=== PATIENT | male | born 1945 | race Caucasian/White ===

== ENCOUNTER 2020-09-11 14:49 | Inpatient (IN) | payer MEDICARE, OTHER ==
[~2020-09-11] VITALS: Ht 188 cm; Wt 86.8 kg
[2020-09-11 15:54] LABS: BASOPHILS # (AUTO) 0.1 X10'3 (0-0.2); BASOPHILS % (AUTO) 1.1 % (0-1); EOSINOPHILS # (AUTO) 0.1 X10'3 (0-0.9); EOSINOPHILS % (AUTO) 1.6 % (0-6); HEMOGLOBIN 16.6 g/dl (14.0-17.9); LYMPHOCYTES # (AUTO) 0.8 X10'3 (1.1-4.8); MEAN CORPUSCULAR HEMOGLOBIN 33.3 PG (27.0-31.0); MEAN CORPUSCULAR HGB CONC 34.6 g/dL (33.0-36.5); MEAN CORPUSCULAR VOLUME 96.4 FL (78-98); MEAN PLATELET VOLUME 8.4 FL (7.4-10.4); MONOCYTES # (AUTO) 0.5 X10'3 (0-0.9); MONOCYTES % (AUTO) 7.9 % (2-12); NEUTROPHILS # (AUTO) 4.9 X10'3 (1.8-7.7); NEUTROPHILS % (AUTO) 76.4 % (42-75); PLATELET COUNT 168 X10'3 (140-440); RED BLOOD COUNT 4.98 X10'6 (4.70-6.10); RED CELL DISTRIBUTION WIDTH 13.9 % (11.5-14.5); WHITE BLOOD COUNT 6.4 X10'3 (4.5-11.0)
[2020-09-11 16:02] LABS: ALANINE AMINOTRANSFERASE 20 U/L (12-78); ALBUMIN 3.2 G/DL (3.4-5.0); ALBUMIN/GLOBULIN RATIO 0.9 (1.1-1.5); ALKALINE PHOSPHATASE 79 IU/L (46-116); ANION GAP 9 (8-16); ASPARTATE AMINO TRANSFERASE 42 U/L (10-37); BILIRUBIN,TOTAL 0.7 MG/DL (0.1-1.0); BLOOD UREA NITROGEN 9 MG/DL (7-18); BUN/CREATININE RATIO 9.5 (5.4-32.0); CALCIUM 8.4 MG/DL (8.5-10.1); CHLORIDE 95 MMOL/L (99-107); CREATININE 0.95 MG/DL (0.60-1.10); GLUCOSE 152 MG/DL (70-104); POTASSIUM 3.7 MMOL/L (3.5-5.1); SODIUM 129 MMOL/L (135-145); TOTAL CARBON DIOXIDE 24.6 MMOL/L (24-32); TOTAL PROTEIN 6.7 G/DL (6.4-8.2); eGFR 77 ML/MIN
[2020-09-11 16:10] LABS: MAGNESIUM 1.8 MG/DL (1.5-2.4)
[2020-09-11] MEDS ORDERED: iohexol 350 MG/ML 50ML vial IV ONE (17:35)
[2020-09-11] MEDS ORDERED: iohexol 350MG/ML 100ml bottle IV ONE (17:36)
[2020-09-11] MEDS ORDERED: heparin 10,000 units/1 ML INJ IV ONE ×2 (17:45→18:00)
[2020-09-11] MEDS ORDERED: heparin 10,000 units/1 ML INJ IV PRN (17:45)
[2020-09-11] MEDS ORDERED: CARV3.12 PO (18:08)
[2020-09-11] MEDS ORDERED: ATOR40TA14 PO (18:08)
[2020-09-11] MEDS ORDERED: APIX5TAB3 PO (18:08)
[2020-09-11] MEDS ORDERED: SACU1TAB7 PO (18:08)
[2020-09-11] MEDS: heparin 25,000 UNIT/250ml bag 250 ML IV SCH (18:11)
[2020-09-11] MEDS ORDERED: magnesium Cl slow-release 64mg tablet PO PRN (19:30)
[2020-09-11] MEDS ORDERED: ondansetron/PF 4mg/2ml inj IV PRN (19:30)
[2020-09-11] MEDS ORDERED: potassium Cl 20 mEq SR tablet PO PRN (19:30)
[2020-09-11] MEDS ORDERED: acetaminophen 650mg rectal suppository RC PRN (19:30)
[2020-09-11] MEDS ORDERED: diphenhydrAMINE 25mg capsule PO PRN (19:30)
[2020-09-11] MEDS ORDERED: HYDROcodone/acetaminophen 10/325mg tab PO PRN (19:30)
[2020-09-11] MEDS ORDERED: magnesium 2GM in 50ml NS 50 ML IV PRN (19:30)
[2020-09-11] MEDS ORDERED: magnesium 4gm in 100ml NS 100 ML IV PRN (19:30)
[2020-09-11] MEDS ORDERED: acetaminophen 325mg tablet PO PRN ×2 (19:30)
[2020-09-11] MEDS ORDERED: magnesium hydroxide 30ml (MOM) UD suspension PO PRN (19:30)
[2020-09-11] MEDS ORDERED: morphine 2 MG/ML inj. syringe IV PRN ×2 (19:30)
[2020-09-11] MEDS ORDERED: HYDROcodone/acetaminophen 5mg/325mg tablet PO PRN (19:30)
[2020-09-11] MEDS ORDERED: bisacodyl 10mg suppository rectal RC PRN (19:30)
[2020-09-11] MEDS ORDERED: mag hydrox/Alum hydrox/simeth 30ml oral suspension PO PRN (19:30)
[2020-09-11] MEDS ORDERED: potassium Cl 40MEQ/1/2NS 520ml 520 ML IV PRN ×2 (19:30)
[2020-09-11 20:16] LABS: HEMOGLOBIN A1C 5.4 % (4.5-6.2)
[2020-09-11] MEDS: normal saline 1000ml 1,000 ML IV SCH (20:22)
[2020-09-11] MEDS: K and/or MAG REPLACEMENT MC SCH (20:22)
[2020-09-11] MEDS: sacubitril/valsartan 49mg-51mg tablet PO SCH (20:45)
[2020-09-11] MEDS: carVEDilol 3.125mg tablet PO SCH (20:45)
[2020-09-11] MEDS ORDERED: nitroGLYCERIN 0.4mg SUBLingual tab SL PRN (21:20)
[2020-09-11] MEDS ORDERED: aminophylline 250mg/10ml inj. IV PRN (21:20)
[2020-09-11] MEDS ORDERED: metoprolol tartrate 1mg/ml inj IV PRN (21:20)
[2020-09-11] MEDS ORDERED: regadenoson 0.4mg/5ml syringe IV ONE (21:20)
[2020-09-11] MEDS ORDERED: regadenoson 0.4mg/5ml syringe IV PRN (21:30)
--- NOTE | 2020-09-11 23:05 | NUR ---
pt on hospital bed
[2020-09-12] VITALS (11 sets, daily range): BP systolic 78–143; BP diastolic 43–79
[2020-09-12] MEDS: heparin 25,000 UNIT/250ml bag 250 ML IV SCH (01:40)
--- NOTE | 2020-09-12 06:50 | NUR ---
coag labs drawn
--- NOTE | 2020-09-12 07:45 | NUR ---
Went to bedside to assess pt's IV pumps. Found Heparin gtt to be running at 19 units/hr and not the documented 1900 units/hr. Spoke to sql bi developer, as well as pharmacist. Pump to be set back at original 1500 units/hour titration order, and PTT to be redrawn in 6 hours. Hospitalist paged.
[2020-09-12] MEDS: K and/or MAG REPLACEMENT MC SCH ×2 (08:00→20:00)
[2020-09-12] MEDS ORDERED: atorvastatin 20mg tablet PO SCH (08:00)
--- NOTE | 2020-09-12 08:15 | NUR ---
Spoke to Pharmacist, states she also reccomends giving bolus dose as PTT is low.
--- NOTE | 2020-09-12 08:17 | NUR ---
Spoke to Dr. Montes regarding Heparin. MD aware of pharmacist reccomendations and agrees with current plan.
--- NOTE | 2020-09-12 08:45 | NUR ---
pt in [facility]
[2020-09-12 10:51] LABS: BASOPHILS # (AUTO) 0.1 X10'3 (0-0.2); BASOPHILS % (AUTO) 0.8 % (0-1); EOSINOPHILS # (AUTO) 0.1 X10'3 (0-0.9); EOSINOPHILS % (AUTO) 1.7 % (0-6); HEMATOCRIT 55.4 % (42.0-52.0); LYMPHOCYTES # (AUTO) 0.7 X10'3 (1.1-4.8); LYMPHOCYTES % (AUTO) 10.3 % (21-51); MEAN CORPUSCULAR HEMOGLOBIN 32.8 PG (27.0-31.0); MEAN CORPUSCULAR VOLUME 96.2 FL (78-98); MEAN PLATELET VOLUME 8.5 FL (7.4-10.4); MONOCYTES # (AUTO) 0.4 X10'3 (0-0.9); MONOCYTES % (AUTO) 6.2 % (2-12); NEUTROPHILS # (AUTO) 5.6 X10'3 (1.8-7.7); PLATELET COUNT 177 X10'3 (140-440); RED BLOOD COUNT 5.75 X10'6 (4.70-6.10); WHITE BLOOD COUNT 6.9 X10'3 (4.5-11.0)
[2020-09-12] MEDS: carVEDilol 3.125mg tablet PO SCH ×2 (10:59→21:55)
[2020-09-12 11:03] LABS: HEMOGLOBIN 18.9 g/dl (14.0-17.9)
[2020-09-12 11:04] LABS: ALANINE AMINOTRANSFERASE 24 U/L (12-78); ALBUMIN 3.6 G/DL (3.4-5.0); ALBUMIN/GLOBULIN RATIO 0.9 (1.1-1.5); ALKALINE PHOSPHATASE 90 IU/L (46-116); ANION GAP 7 (8-16); ASPARTATE AMINO TRANSFERASE 45 U/L (10-37); BILIRUBIN,TOTAL 1.2 MG/DL (0.1-1.0); BLOOD UREA NITROGEN 6 MG/DL (7-18); BUN/CREATININE RATIO 6.8 (5.4-32.0); CALCIUM 8.6 MG/DL (8.5-10.1); CHLORIDE 99 MMOL/L (99-107); CHOL/HDL RATIO 3.4 (0.00-4.99); CHOLESTEROL 178 MG/DL (0-200); CREATININE 0.88 MG/DL (0.60-1.10); GLUCOSE 102 MG/DL (70-104); HDL CHOLESTEROL 53 MG/DL (35-60); LDL CHOLESTEROL 115 MG/DL (50-100); MAGNESIUM 1.9 MG/DL (1.5-2.4); PHOSPHORUS 3.1 MG/DL (2.3-4.5); SODIUM 136 MMOL/L (135-145); TOTAL CARBON DIOXIDE 29.7 MMOL/L (24-32); TOTAL PROTEIN 7.5 G/DL (6.4-8.2); TRIGLYCERIDES 51 MG/DL (20-135); eGFR 85 ML/MIN
[2020-09-12] MEDS: sacubitril/valsartan 49mg-51mg tablet PO SCH (11:07)
[2020-09-12] MEDS: normal saline 1000ml 1,000 ML IV SCH (11:08)
[2020-09-12] MEDS ORDERED: SACU1TAB4 PO (13:02)
--- NOTE | 2020-09-12 14:53 | NUR ---
notified. PAGER ID: [phone] MESSAGE: RE; Alexi Stearns. [id number]. Critical Ptt at 116. Stopping heparin gtt for 2 hours, per protocol. Thanks. Jinny. [id number].
--- NOTE | 2020-09-12 18:44 | NUR ---
Problems reprioritized. Patient report given, questions answered & plan of care reviewed with MARYURI Cameron.
--- NOTE | 2020-09-12 18:45 | NUR ---
Patient in room PCU 3027. I have received report from Jinny WAHL and had the opportunity to ask questions and assume patient care.
[2020-09-12] MEDS: SACUBITRIL PO SCH (20:00)
[2020-09-12] MEDS: [UNRECOGNIZED DRUG - OTHER] PO SCH (20:00)
[2020-09-12] MEDS: VALSARTAN PO SCH (20:00)
[2020-09-12] MEDS: atorvastatin 20mg tablet PO SCH (21:55)
[2020-09-13] VITALS (10 sets, daily range): BP systolic 94–179; BP diastolic 54–87
[2020-09-13 01:08] LABS: CLARITY,URINE CLEAR (Clear); COLOR,URINE YELLOW (Yellow); GLUCOSE, URINE NEGATIVE (Neg); KETONES,URINE 15 mg/dl (Neg); LEUKOCYTE ESTERASE ,URINE NEGATIVE (Neg); NITRITES, URINE NEGATIVE (Neg); OCCULT BLOOD,URINE TRACE-INTACT (Neg); PROTEIN,URINE NEGATIVE (Neg)
[2020-09-13 01:21] LABS: UA COLLECTION TYPE VOIDED
[2020-09-13 01:26] LABS: BACTERIA,URINE NONE SEEN /HPF (Neg); MUCUS STRANDS NONE SEEN /LPF (Neg); SQUAMOUS EPITHELIAL CELL,UR FEW /LPF (FEW); WBC,URINE 0-4 /HPF (0-4)
[2020-09-13 02:11] LABS: BASOPHILS % (AUTO) 0.8 % (0-1); EOSINOPHILS # (AUTO) 0.1 X10'3 (0-0.9); EOSINOPHILS % (AUTO) 2.1 % (0-6); HEMATOCRIT 50.6 % (42.0-52.0); HEMOGLOBIN 17.5 g/dl (14.0-17.9); LYMPHOCYTES % (AUTO) 15.2 % (21-51); MEAN CORPUSCULAR HEMOGLOBIN 33.3 PG (27.0-31.0); MEAN CORPUSCULAR HGB CONC 34.6 g/dL (33.0-36.5); MEAN CORPUSCULAR VOLUME 96.5 FL (78-98); MEAN PLATELET VOLUME 9.1 FL (7.4-10.4); MONOCYTES # (AUTO) 0.5 X10'3 (0-0.9); MONOCYTES % (AUTO) 7.8 % (2-12); NEUTROPHILS # (AUTO) 4.9 X10'3 (1.8-7.7); NEUTROPHILS % (AUTO) 74.1 % (42-75); PLATELET COUNT 150 X10'3 (140-440); RED BLOOD COUNT 5.24 X10'6 (4.70-6.10); WHITE BLOOD COUNT 6.6 X10'3 (4.5-11.0)
[2020-09-13] MEDS: cefepime 1GM/NS ADD-VANTAGE 100 ML IV SCH ×2 (02:12→07:32)
[2020-09-13] MEDS: heparin 25,000 UNIT/250ml bag 250 ML IV SCH (02:17)
[2020-09-13 02:23] LABS: ALANINE AMINOTRANSFERASE 19 U/L (12-78); ALBUMIN 3.1 G/DL (3.4-5.0); ALKALINE PHOSPHATASE 72 IU/L (46-116); ANION GAP 7 (8-16); ASPARTATE AMINO TRANSFERASE 35 U/L (10-37); BLOOD UREA NITROGEN 9 MG/DL (7-18); BUN/CREATININE RATIO 11.8 (5.4-32.0); CALCIUM 8.2 MG/DL (8.5-10.1); CHLORIDE 99 MMOL/L (99-107); CREATININE 0.76 MG/DL (0.60-1.10); GLUCOSE 91 MG/DL (70-104); MAGNESIUM 1.8 MG/DL (1.5-2.4); PHOSPHORUS 2.9 MG/DL (2.3-4.5); POTASSIUM 3.6 MMOL/L (3.5-5.1); SODIUM 132 MMOL/L (135-145); TOTAL CARBON DIOXIDE 25.7 MMOL/L (24-32); TOTAL PROTEIN 6.3 G/DL (6.4-8.2); eGFR > 90 ML/MIN
--- NOTE | 2020-09-13 06:27 | NUR ---
Patient in room PCU 3027. I have received report from MARYURI Cameron and had the opportunity to ask questions and assume patient care.
[2020-09-13] MEDS: carVEDilol 3.125mg tablet PO SCH ×2 (07:32→21:02)
[2020-09-13] MEDS: K and/or MAG REPLACEMENT MC SCH ×2 (08:00→20:00)
[2020-09-13] MEDS: SACUBITRIL PO SCH ×2 (08:00→20:00)
[2020-09-13] MEDS: [UNRECOGNIZED DRUG - OTHER] PO SCH ×2 (08:00→20:00)
[2020-09-13] MEDS: VALSARTAN PO SCH ×2 (08:00→20:00)
--- NOTE | 2020-09-13 08:43 | NUR ---
Problems reprioritized. Patient report given, questions answered & plan of care reviewed with Jinny WAHL.
[2020-09-13] MEDS ORDERED: iohexol 350MG/ML 100ml bottle IV ONE ×2 (12:48→13:54)
[2020-09-13] MEDS ORDERED: heparin 1,000unit/ml 10ml vial 10 ML ONE (12:48)
[2020-09-13] MEDS ORDERED: LIDOcaine 1% (10mg/ml)w/preservative injection 20ml MDV ONE (12:48)
[2020-09-13] MEDS ORDERED: iohexol 350 MG/ML 50ML vial IV ONE ×2 (12:48→13:05)
[2020-09-13] MEDS ORDERED: fentaNYL/PF 50MCG/1 ML 2ML syringe ONE ×2 (12:48→13:40)
[2020-09-13] MEDS ORDERED: midazolam 1 mg/ML 2ml injection ONE ×3 (12:48→14:38)
[2020-09-13] MEDS ORDERED: heparin 1,000 UNITS/NS 500ml 500 ML ONE ×2 (13:40→14:51)
[2020-09-13] MEDS ORDERED: LIDOcaine 1%/PF 5ML 10 MG/ML VIAL ONE (13:40)
[2020-09-13] MEDS ORDERED: iohexol 300 MG/1 ML 50ml polymer ONE (13:40)
--- NOTE | 2020-09-13 15:40 | NUR ---
Report called from [facility] suite post procedure and given to Mignon Crocker RN. Patient transferred to room 2043 with vital signs stable and sheath site clean, dry, and intact. RNs Mignon Craig and Geovanny present at bedside and assuming care.
[2020-09-13] MEDS ORDERED: acetaminophen 325mg tablet PO PRN ×2 (15:50)
[2020-09-13] MEDS ORDERED: K, MAG and/or Phos replacement - Verify level? MC SCH (15:50)
[2020-09-13] MEDS: normal saline 1000ml 1,000 ML IV SCH (15:50)
[2020-09-13] MEDS ORDERED: magnesium hydroxide 30ml (MOM) UD suspension PO PRN (15:50)
[2020-09-13] MEDS ORDERED: morphine 2 MG/ML inj. syringe IV PRN (15:50)
[2020-09-13] MEDS: heparin 1,000 UNITS/NS 500ml 500 ML IV SCH ×2 (15:50→20:19)
[2020-09-13] MEDS ORDERED: potassium Cl 20 mEq SR tablet PO PRN ×2 (15:50)
[2020-09-13] MEDS ORDERED: ondansetron/PF 4mg/2ml inj IV PRN ×2 (15:50→16:30)
[2020-09-13] MEDS ORDERED: LIDOcaine 2% 10ml TOPICAL JELLY (Urojet) TP ONE (15:50)
[2020-09-13] MEDS ORDERED: morphine 4 MG/ML inj SYRINge IV PRN (15:50)
--- NOTE | 2020-09-13 16:00 | NUR ---
pt received from [facility]io, alert and oriented. no doppler left dp, but has pt doppler left. doppler on rt foot. dusky left foot, ada feet cold.
[2020-09-13] MEDS ORDERED: HYDROcodone/acetaminophen 5mg/325mg tablet PO PRN (16:30)
[2020-09-13] MEDS ORDERED: proCHLORperazine 10 MG/2 ml inj IV PRN (16:30)
[2020-09-13] MEDS ORDERED: OXAZEpam 15mg capsule PO PRN (16:30)
[2020-09-13] MEDS: sodium chloride 0.45% 1,000 ML IV SCH ×2 (16:40→18:52)
[2020-09-13] MEDS: vancomycin/NS 1 GM ADD-VANTAGE 250 ML IV SCH (19:06)
[2020-09-13] MEDS: clindamycin 600mg/D5W 50ml 50 ML IV SCH (21:02)
[2020-09-13] MEDS: atorvastatin 20mg tablet PO SCH (21:02)
[2020-09-13] MEDS: lactobacillus rhamnosus 10,000 MMU CELLS/CAPSULE PO SCH (21:03)
[2020-09-13] MEDS: HYDROcodone/acetaminophen 10/325mg tab PO PRN (21:26)
[2020-09-14] VITALS (24 sets, daily range): BP systolic 85–164; BP diastolic 50–78
[2020-09-14] MEDS: heparin 25,000 UNIT/250ml bag 250 ML IV SCH ×2 (00:41→14:30)
[2020-09-14] MEDS: heparin 1,000 UNITS/NS 500ml 500 ML IV SCH ×2 (01:27→07:12)
[2020-09-14] MEDS: normal saline 1000ml 1,000 ML IV SCH ×2 (01:28→14:12)
[2020-09-14] MEDS: clindamycin 600mg/D5W 50ml 50 ML IV SCH ×4 (01:30→20:42)
[2020-09-14 03:32] LABS: ALANINE AMINOTRANSFERASE 17 U/L (12-78); ALBUMIN 2.8 G/DL (3.4-5.0); ALBUMIN/GLOBULIN RATIO 0.9 (1.1-1.5); ALKALINE PHOSPHATASE 65 IU/L (46-116); ANION GAP 13 (8-16); ASPARTATE AMINO TRANSFERASE 27 U/L (10-37); BILIRUBIN,TOTAL 0.9 MG/DL (0.1-1.0); BLOOD UREA NITROGEN 10 MG/DL (7-18); BUN/CREATININE RATIO 13.3 (5.4-32.0); CALCIUM 7.7 MG/DL (8.5-10.1); CHLORIDE 100 MMOL/L (99-107); CREATININE 0.75 MG/DL (0.60-1.10); GLUCOSE 80 MG/DL (70-104); MAGNESIUM 1.8 MG/DL (1.5-2.4); PHOSPHORUS 4.4 MG/DL (2.3-4.5); POTASSIUM 3.3 MMOL/L (3.5-5.1); SODIUM 134 MMOL/L (135-145); TOTAL CARBON DIOXIDE 21.5 MMOL/L (24-32); TOTAL PROTEIN 5.9 G/DL (6.4-8.2); eGFR > 90 ML/MIN
[2020-09-14 03:34] LABS: BASOPHILS # (AUTO) 0.1 X10'3 (0-0.2); BASOPHILS % (AUTO) 0.8 % (0-1); EOSINOPHILS # (AUTO) 0.1 X10'3 (0-0.9); EOSINOPHILS % (AUTO) 1.2 % (0-6); HEMATOCRIT 47.7 % (42.0-52.0); HEMOGLOBIN 16.1 g/dl (14.0-17.9); LYMPHOCYTES # (AUTO) 0.6 X10'3 (1.1-4.8); LYMPHOCYTES % (AUTO) 9.4 % (21-51); MEAN CORPUSCULAR HEMOGLOBIN 33.1 PG (27.0-31.0); MEAN CORPUSCULAR HGB CONC 33.7 g/dL (33.0-36.5); MEAN CORPUSCULAR VOLUME 98.1 FL (78-98); MEAN PLATELET VOLUME 9.4 FL (7.4-10.4); MONOCYTES # (AUTO) 0.4 X10'3 (0-0.9); MONOCYTES % (AUTO) 6.6 % (2-12); NEUTROPHILS # (AUTO) 5.6 X10'3 (1.8-7.7); PLATELET COUNT 133 X10'3 (140-440); RED BLOOD COUNT 4.87 X10'6 (4.70-6.10); RED CELL DISTRIBUTION WIDTH 14.2 % (11.5-14.5); WHITE BLOOD COUNT 6.8 X10'3 (4.5-11.0)
--- NOTE | 2020-09-14 06:10 | NUR ---
Patient in room ICU 2043. I have received report from Marya Munroe RN and had the opportunity to ask questions and assume patient care.
[2020-09-14] MEDS: [UNRECOGNIZED DRUG - OTHER] PO SCH ×2 (07:15→20:00)
[2020-09-14] MEDS: vancomycin/NS 1 GM ADD-VANTAGE 250 ML IV SCH ×2 (07:15→18:39)
[2020-09-14] MEDS: carVEDilol 3.125mg tablet PO SCH ×2 (07:15→20:48)
[2020-09-14] MEDS: VALSARTAN PO SCH ×2 (07:15→20:00)
[2020-09-14] MEDS: SACUBITRIL PO SCH ×2 (07:15→20:00)
[2020-09-14] MEDS: lactobacillus rhamnosus 10,000 MMU CELLS/CAPSULE PO SCH ×2 (07:15→20:48)
[2020-09-14] MEDS: potassium Cl 20 mEq SR tablet PO PRN ×2 (07:17→14:41)
[2020-09-14] MEDS: K and/or MAG REPLACEMENT MC SCH ×2 (07:23→20:00)
--- NOTE | 2020-09-14 11:48 | NUR ---
IR note: Went to bedside to pull sheath prior to transfer per Dr Melendez, but both Dr Williamson and Dr Figueroa were at bedside. Both doctors ordered to leave sheath in place. Per Dr Figueroa, only the up-and-over Hsieh catheter was discontinued, and the sheath was left in place. stockholder Mignon notified. Patient still awaiting an accepting hospital for transfer.
[2020-09-14] MEDS: HYDROcodone/acetaminophen 10/325mg tab PO PRN ×2 (14:12→20:50)
--- NOTE | 2020-09-14 18:13 | NUR ---
Problems reprioritized. Patient report given, questions answered & plan of care reviewed with Marya Santo RN.
[2020-09-14] MEDS: atorvastatin 20mg tablet PO SCH (20:49)
[2020-09-14] MEDS ORDERED: potassium Cl 40MEQ/1/2NS 520ml 520 ML IV PRN (21:15)
[2020-09-14] MEDS ORDERED: potassium Cl 20 mEq SR tablet PO PRN ×2 (21:15)
[2020-09-15] VITALS (33 sets, daily range): BP systolic 113–176; BP diastolic 59–77
[2020-09-15] MEDS: clindamycin 600mg/D5W 50ml 50 ML IV SCH ×3 (01:30→13:32)
[2020-09-15] MEDS: normal saline 1000ml 1,000 ML IV SCH (03:13)
[2020-09-15 04:30] LABS: BASOPHILS % (AUTO) 0.6 % (0-1); EOSINOPHILS # (AUTO) 0.1 X10'3 (0-0.9); EOSINOPHILS % (AUTO) 1.5 % (0-6); HEMATOCRIT 44.6 % (42.0-52.0); HEMOGLOBIN 15.2 g/dl (14.0-17.9); LYMPHOCYTES # (AUTO) 0.6 X10'3 (1.1-4.8); LYMPHOCYTES % (AUTO) 8.1 % (21-51); MEAN CORPUSCULAR VOLUME 96.8 FL (78-98); MEAN PLATELET VOLUME 9.3 FL (7.4-10.4); MONOCYTES # (AUTO) 0.5 X10'3 (0-0.9); MONOCYTES % (AUTO) 6.5 % (2-12); NEUTROPHILS # (AUTO) 6.3 X10'3 (1.8-7.7); NEUTROPHILS % (AUTO) 83.3 % (42-75); PLATELET COUNT 134 X10'3 (140-440); RED BLOOD COUNT 4.61 X10'6 (4.70-6.10); WHITE BLOOD COUNT 7.6 X10'3 (4.5-11.0)
[2020-09-15 04:50] LABS: ALANINE AMINOTRANSFERASE 19 U/L (12-78); ALBUMIN 2.5 G/DL (3.4-5.0); ALBUMIN/GLOBULIN RATIO 0.9 (1.1-1.5); ALKALINE PHOSPHATASE 67 IU/L (46-116); ANION GAP 12 (8-16); ASPARTATE AMINO TRANSFERASE 28 U/L (10-37); BILIRUBIN,TOTAL 0.8 MG/DL (0.1-1.0); BLOOD UREA NITROGEN 5 MG/DL (7-18); BUN/CREATININE RATIO 7.6 (5.4-32.0); CALCIUM 7.4 MG/DL (8.5-10.1); CHLORIDE 100 MMOL/L (99-107); CREATININE 0.66 MG/DL (0.60-1.10); GLUCOSE 95 MG/DL (70-104); MAGNESIUM 1.6 MG/DL (1.5-2.4); PHOSPHORUS 2.9 MG/DL (2.3-4.5); POTASSIUM 3.5 MMOL/L (3.5-5.1); SODIUM 133 MMOL/L (135-145); TOTAL CARBON DIOXIDE 21.5 MMOL/L (24-32); TOTAL PROTEIN 5.4 G/DL (6.4-8.2); eGFR > 90 ML/MIN
[2020-09-15] MEDS: heparin 25,000 UNIT/250ml bag 250 ML IV SCH ×2 (05:05→13:35)
--- NOTE | 2020-09-15 06:00 | NUR ---
Patient in room ICU 2043. I have received report from Shaneka WAHL and had the opportunity to ask questions and assume patient care.
[2020-09-15] MEDS ORDERED: VANCOMYCIN LEVEL IV ONE (06:30)
[2020-09-15] MEDS: K and/or MAG REPLACEMENT MC SCH (08:00)
[2020-09-15] MEDS: VALSARTAN PO SCH (08:00)
[2020-09-15] MEDS: SACUBITRIL PO SCH (08:00)
[2020-09-15] MEDS: [UNRECOGNIZED DRUG - OTHER] PO SCH (08:00)
[2020-09-15] MEDS: carVEDilol 3.125mg tablet PO SCH (08:20)
[2020-09-15] MEDS: vancomycin/NS 1 GM ADD-VANTAGE 250 ML IV SCH (08:20)
[2020-09-15] MEDS: lactobacillus rhamnosus 10,000 MMU CELLS/CAPSULE PO SCH (08:21)
[2020-09-15] MEDS: HYDROcodone/acetaminophen 10/325mg tab PO PRN (08:59)
[2020-09-15] MEDS: sodium chloride 0.45% 1,000 ML IV SCH (10:43)
--- NOTE | 2020-09-15 13:30 | NUR ---
Gave report to Be[facility] at [facility]
--- NOTE | 2020-09-15 16:39 | NUR ---
Patient is being transferred to [facility] by [facility]. Gave report to Anyi Kim RN and Lj Plummer.
[2020-09-15] MEDS ORDERED: VANCOmycin 1250MG/NS 250ml Bag 250 ML IV SCH (19:00)
[2020-09-15] MEDS ORDERED: sacubitril/valsartan 49mg-51mg tablet PO SCH (20:00)
[2020-09-17] MEDS ORDERED: VANCOMYCIN LEVEL IV ONE (06:30)
== END 2020-09-15 19:26 | disposition critical access hospital (66) | DRG 287 ==
LOC: ER 14:50 → ED HOLD 19:28 → PCU 3S 09-12 13:59 → ICU 2S 09-13 14:26
PROVIDERS: ADMIT Family Medicine; ATTEND Family Medicine
PROC: B42H1ZZ Computerized Tomography (CT Scan) of Bilateral Lower Extremity Arteries using Low Osmolar Contrast (ICD-10-PCS; 2020-09-11)
PROC: 4A02XM4 Measurement of Cardiac Total Activity, External Approach (ICD-10-PCS; 2020-09-11)
PROC: 3E073KZ Introduction of Other Diagnostic Substance into Coronary Artery, Percutaneous Approach (ICD-10-PCS; 2020-09-11)
PROC: 4A023N7 Measurement of Cardiac Sampling and Pressure, Left Heart, Percutaneous Approach (ICD-10-PCS; principal; 2020-09-13)
PROC: B2111ZZ Fluoroscopy of Multiple Coronary Arteries using Low Osmolar Contrast (ICD-10-PCS; 2020-09-13)
PROC: B41F1ZZ Fluoroscopy of Right Lower Extremity Arteries using Low Osmolar Contrast (ICD-10-PCS; 2020-09-13)
PROC: B31N1ZZ Fluoroscopy of Other Upper Arteries using Low Osmolar Contrast (ICD-10-PCS; 2020-09-13)
PROC: B3121ZZ Fluoroscopy of Left Subclavian Artery using Low Osmolar Contrast (ICD-10-PCS; 2020-09-13)
PROC: B3111ZZ Fluoroscopy of Right Brachiocephalic-Subclavian Artery using Low Osmolar Contrast (ICD-10-PCS; 2020-09-13)
PROC: B2151ZZ Fluoroscopy of Left Heart using Low Osmolar Contrast (ICD-10-PCS; 2020-09-13)
PROC: B41G1ZZ Fluoroscopy of Left Lower Extremity Arteries using Low Osmolar Contrast (ICD-10-PCS; 2020-09-13)
PROC: B51C1ZZ Fluoroscopy of Left Lower Extremity Veins using Low Osmolar Contrast (ICD-10-PCS; 2020-09-13)
DX: I70.222 Atherosclerosis of native arteries of extremities with rest pain, left leg (principal); E87.1 Hypo-osmolality and hyponatremia; N39.0 Urinary tract infection, site not specified; I48.20 Chronic atrial fibrillation, unspecified; E78.5 Hyperlipidemia, unspecified; F17.200 Nicotine dependence, unspecified, uncomplicated; I11.0 Hypertensive heart disease with heart failure; I25.5 Ischemic cardiomyopathy; I25.119 Atherosclerotic heart disease of native coronary artery with unspecified angina pectoris; I50.9 Heart failure, unspecified; D50.9 Iron deficiency anemia, unspecified; I99.8 Other disorder of circulatory system; Z20.822 Contact with and (suspected) exposure to COVID-19; Z66 Do not resuscitate; Z79.01 Long term (current) use of anticoagulants; I25.2 Old myocardial infarction; Z88.0 Allergy status to penicillin; Z95.810 Presence of automatic (implantable) cardiac defibrillator; Z98.61 Coronary angioplasty status
CPT/HCPCS: 36160; 36245; 36415; 71045; 73706; 75710; 78452; 80053; 80061; 80202; 81001; 83036; 83605; 83735; 83880; 84100; 85025; 85610; 85730; 86885; 86900; 86901; 86920; 87040; 87081; 87635; 93005; 93017; 93306; 93459; 93922; 93925; 93971; 99152; 99153; 99285; A4620; A6258; A9500; C1729; C1769; G0378; J0692; J1644; J2001; J2250; J2785; J3010; J3370; J3490; J7030; J7040; Q9967